=== PATIENT | male | born 1965 | race African-American/Black ===

== ENCOUNTER 2021-11-26 14:45 | Inpatient (IN) | payer OTHER, SELFPAY ==
[~2021-11-26 14:45] MED LIST: Iopamidol 300 61% 100 ML VIAL FS ONE
[2021-11-26] MEDS ORDERED: Morphine 4 MG/ML VIAL ONE (15:29)
[2021-11-26] MEDS ORDERED: Ondansetron PF 4 MG/2 ML Vial ONE (15:29)
[2021-11-26 15:33] LABS: #Eosinphils 0.2 10x3/uL (0.0-0.5); #Monocytes 0.7 10x3/uL (0.0-1.1); #Neutrophils 13.7 10x3/uL (1.5-8.4); %Basophils 0.3 % (0.0-2.0); %Lymphocytes 5.7 % (18.0-47.0); %Monocytes 4.7 % (0.0-10.0); %Neutrophils 87.9 % (40.0-75.0); Hemoglobin 14.5 g/dL (13.5-17.5); Mean Corpuscular HGB CONC 36.3 g/dL (32.0-36.0); Mean Corpuscular Hemoglobin 34.4 pg (27.0-33.0); Mean Corpuscular Volume 94.8 fl (81.2-95.1); Mean Platelet Volume 9.8 fl (7.4-10.4); Platelet Count 179 10x3/uL (150-450); RBC Distribution Width 12.6 % (11.5-14.5); Red Blood Cell (RBC) Count 4.22 10x6/uL (4.32-5.72); White Blood Cell (WBC) Count 15.6 10x3/uL (3.5-10.5)
[2021-11-26 15:42] LABS: ALT (SGPT) 17 U/L (8-55); AST (SGOT) 26 U/L (5-34); Albumin 4.3 g/dL (3.5-5.0); Alkaline Phosphatase 87 U/L (40-110); Anion Gap 18 mmol/L (10-20); BUN (Urea Nitrogen) 15 mg/dL (8.4-25.7); Bilirubin, Total 0.9 mg/dL (0.2-1.2); Calc. Creatinine Clearance 0 mL/min (70-130); Calcium 9.8 mg/dL (7.8-10.44); Carbon Dioxide 21 mmol/L (22-29); Chloride 105 mmol/L (98-107); Globulin 4.1 g/dL (2.4-3.5); Glucose 194 mg/dL (70-105); Potassium 4.5 mmol/L (3.5-5.1); Protein, Total 8.4 g/dL (6.0-8.3); Sodium 139 mmol/L (136-145)
[2021-11-26 15:53] LABS: Lipase 1723 U/L (8-78)
[2021-11-26] MEDS ORDERED: HYDROmorphone 0.5 MG/0.5 ML SYRINGE ONE (16:50)
[2021-11-26] MEDS ORDERED: Ondansetron ODT 4 MG TAB PO PRN (18:02)
[2021-11-26] MEDS ORDERED: Acetaminophen 325 MG TAB PO PRN (18:02)
[2021-11-26] MEDS ORDERED: Ondansetron PF 4 MG/2 ML Vial IVP PRN (18:02)
[2021-11-26] MEDS ORDERED: HumaLOG 300 UNITS/3 ML VIAL SC PRN (18:04)
[2021-11-26] MEDS ORDERED: Dextrose 50% Abboject 50 ML SYRINGE SLOW IVP PRN (18:04)
[2021-11-26] MEDS ORDERED: Dextrose 5% in Water 1,000 ML IV PRN (18:04)
[2021-11-26] MEDS ORDERED: Nicotine 7 MG PATCH TD PRN (18:06)
[2021-11-26] MEDS ORDERED: Electrolyte Replacement Protocol 1 EACH FS PRN (18:15)
[2021-11-26 18:47] LABS: Lactic Acid 2.3 mmol/L (0.5-2.2)
[2021-11-26] MEDS: Sodium Chloride 0.9% 1,000 ML IV SCH (20:04)
[2021-11-26] MEDS: Morphine 4 MG/ML VIAL SLOW IVP PRN (20:08)
[2021-11-26] MEDS: hydrALAZINE 20 MG/ML VIAL SLOW IVP PRN (21:15)
[2021-11-26 23:13] LABS: SARS-CoV-2 NAA Rapid Test Not Detected (NotDetected)
[2021-11-27] MEDS: Morphine 4 MG/ML VIAL SLOW IVP PRN ×4 (00:12→22:45)
[2021-11-27] MEDS: Sodium Chloride 0.9% 1,000 ML IV SCH ×4 (02:54→20:07)
[2021-11-27 03:22] LABS: Amphetamine Not Detected (NotDetected); Barbiturates Screen Not Detected (NotDetected); Benzodiazepine Screen Not Detected (NotDetected); Cocaine Metabolite Screen Not Detected (NotDetected); Methadone Not Detected (NotDetected); Methamphetamine Not Detected (NotDetected); Opiate Screen Detected (NotDetected); Oxycodone Screen Not Detected (NotDetected); Phencyclidine (PCP) Not Detected (NotDetected); THC/Cannabinoid Screen Not Detected (NotDetected); Tricyclic Screen Not Detected (NotDetected)
[2021-11-27 04:36] LABS: #Monocytes 0.6 10x3/uL (0.0-1.1); #Neutrophils 9.2 10x3/uL (1.5-8.4); %Basophils 0.3 % (0.0-2.0); %Eosinophils 0.2 % (0.0-6.0); %Lymphocytes 9.9 % (18.0-47.0); %Monocytes 5.4 % (0.0-10.0); %Neutrophils 83.8 % (40.0-75.0); Hemoglobin 12.4 g/dL (13.5-17.5); Mean Corpuscular HGB CONC 35.6 g/dL (32.0-36.0); Mean Corpuscular Hemoglobin 34.5 pg (27.0-33.0); Mean Corpuscular Volume 96.9 fl (81.2-95.1); Mean Platelet Volume 10.6 fl (7.4-10.4); Platelet Count 143 10x3/uL (150-450); RBC Distribution Width 12.8 % (11.5-14.5); Red Blood Cell (RBC) Count 3.59 10x6/uL (4.32-5.72); White Blood Cell (WBC) Count 10.9 10x3/uL (3.5-10.5)
[2021-11-27 05:02] LABS: Anion Gap 15 mmol/L (10-20); BUN (Urea Nitrogen) 20 mg/dL (8.4-25.7); Calc. Creatinine Clearance 57 mL/min (70-130); Calcium 8.6 mg/dL (7.8-10.44); Carbon Dioxide 21 mmol/L (22-29); Cardiac Risk 3.3 (Less than 4.5); Chloride 106 mmol/L (98-107); Cholesterol 147 mg/dl (< 200 Desired); Glucose 154 mg/dL (70-105); HDL Cholesterol 44 mg/dL (>60 Neg Risk); LDL Cholesterol, Calculated 76 mg/dL; Magnesium 1.4 mg/dL (1.6-2.6); Phosphorus 3.5 mg/dL (2.3-4.7); Potassium 4.5 mmol/L (3.5-5.1); Sodium 137 mmol/L (136-145); Triglycerides 134 mg/dL (Less than 150)
[2021-11-27 05:14] LABS: Lipase 1223 U/L (8-78)
[2021-11-27] MEDS: Magnesium 2 GM/50 ML(in water) 2 GM in Premix Bag 1 BAG IVPB SCH ×2 (05:18→08:00)
[2021-11-27] MEDS ORDERED: Amlodipine 5 MG TAB PO SCH (11:45)
[2021-11-27 12:32] LABS: Hemoglobin A1c 8.1 % (4.0-6.0)
[2021-11-27] MEDS: Amlodipine 5 MG TAB PO SCH (12:34)
[2021-11-27 12:55] LABS: Bilirubin Neg (Negative); Blood, Urine 25 (Negative); Clarity Clear (Clear); Glucose, Urine (Dipstick) 50 mg/dL (Negative); Ketone, Urine Negative (Negative); Leukocyte 25 (Negative); Nitrite Negative (Negative); Protein, Urine (Dipstick) 500 mg/dl (Neg-Trace); Specific Gravity, Urine 1.025 (1.002-1.036); Urobilinogen Normal mg/dL (Less than 2)
[2021-11-27 13:21] LABS: Bacteria/HPF Rare-Few HPF (None Seen); RBC/HPF 0-3 HPF (0-3); Squamous Epithelial 0-3 HPF (0-3); Urine Culture Reflex No No; WBC/HPF 0-3 HPF (0-3)
[2021-11-27 15:30] LABS: ALT (SGPT) 10 U/L (8-55); AST (SGOT) 13 U/L (5-34); Albumin 3.3 g/dL (3.5-5.0); Alkaline Phosphatase 60 U/L (40-110); Bilirubin, Direct 0.5 mg/dL (0.1-0.3); Protein, Total 6.7 g/dL (6.0-8.3)
[2021-11-27 19:26] VITALS: BMI 30.5
[2021-11-28] MEDS: Sodium Chloride 0.9% 1,000 ML IV SCH ×3 (04:20→19:14)
[2021-11-28 04:34] LABS: Prothrombin Time 10.9 sec (9.5-12.1)
[2021-11-28 04:53] LABS: #Eosinphils 0.1 10x3/uL (0.0-0.5); #Monocytes 0.7 10x3/uL (0.0-1.1); #Neutrophils 9.8 10x3/uL (1.5-8.4); %Basophils 0.2 % (0.0-2.0); %Eosinophils 0.4 % (0.0-6.0); %Lymphocytes 10.5 % (18.0-47.0); %Monocytes 6.1 % (0.0-10.0); %Neutrophils 82.1 % (40.0-75.0); Hemoglobin 11.6 g/dL (13.5-17.5); Mean Corpuscular HGB CONC 34.9 g/dL (32.0-36.0); Mean Corpuscular Hemoglobin 34.2 pg (27.0-33.0); Mean Corpuscular Volume 97.9 fl (81.2-95.1); Mean Platelet Volume 10.5 fl (7.4-10.4); RBC Distribution Width 12.8 % (11.5-14.5); Red Blood Cell (RBC) Count 3.39 10x6/uL (4.32-5.72); White Blood Cell (WBC) Count 11.9 10x3/uL (3.5-10.5)
[2021-11-28 04:54] LABS: Platelet Count 130 10x3/uL (150-450)
[2021-11-28 04:57] LABS: ALT (SGPT) 10 U/L (8-55); AST (SGOT) 14 U/L (5-34); Albumin 3.1 g/dL (3.5-5.0); Alkaline Phosphatase 74 U/L (40-110); Anion Gap 14 mmol/L (10-20); BUN (Urea Nitrogen) 16 mg/dL (8.4-25.7); Bilirubin, Total 1.2 mg/dL (0.2-1.2); Calc. Creatinine Clearance 76 mL/min (70-130); Calcium 8.2 mg/dL (7.8-10.44); Carbon Dioxide 21 mmol/L (22-29); Chloride 104 mmol/L (98-107); Globulin 3.4 g/dL (2.4-3.5); Glucose 125 mg/dL (70-105); Magnesium 2.1 mg/dL (1.6-2.6); Potassium 4.6 mmol/L (3.5-5.1); Protein, Total 6.5 g/dL (6.0-8.3); Sodium 134 mmol/L (136-145)
[2021-11-28] MEDS: Amlodipine 5 MG TAB PO SCH (08:59)
[2021-11-28] MEDS: Morphine 4 MG/ML VIAL SLOW IVP PRN ×2 (09:00→15:06)
[2021-11-28] MEDS: HumaLOG 300 UNITS/3 ML VIAL SC PRN (11:12)
[2021-11-29] MEDS: Sodium Chloride 0.9% 1,000 ML IV SCH ×4 (00:50→14:53)
[2021-11-29] MEDS: hydrALAZINE 20 MG/ML VIAL SLOW IVP PRN (00:50)
[2021-11-29 04:22] LABS: #Eosinphils 0.1 10x3/uL (0.0-0.5); #Monocytes 0.7 10x3/uL (0.0-1.1); #Neutrophils 8.9 10x3/uL (1.5-8.4); %Basophils 0.2 % (0.0-2.0); %Eosinophils 0.6 % (0.0-6.0); %Lymphocytes 9.7 % (18.0-47.0); %Monocytes 6.5 % (0.0-10.0); %Neutrophils 82.5 % (40.0-75.0); Hemoglobin 11.4 g/dL (13.5-17.5); Mean Corpuscular HGB CONC 35.4 g/dL (32.0-36.0); Mean Corpuscular Hemoglobin 34.3 pg (27.0-33.0); Mean Platelet Volume 10.4 fl (7.4-10.4); Platelet Count 141 10x3/uL (150-450); RBC Distribution Width 12.5 % (11.5-14.5); Red Blood Cell (RBC) Count 3.32 10x6/uL (4.32-5.72); White Blood Cell (WBC) Count 10.8 10x3/uL (3.5-10.5)
[2021-11-29 04:51] LABS: ALT (SGPT) 8 U/L (8-55); AST (SGOT) 16 U/L (5-34); Alkaline Phosphatase 108 U/L (40-110); Anion Gap 13 mmol/L (10-20); BUN (Urea Nitrogen) 13 mg/dL (8.4-25.7); Calc. Creatinine Clearance 92 mL/min (70-130); Calcium 8.4 mg/dL (7.8-10.44); Carbon Dioxide 20 mmol/L (22-29); Chloride 105 mmol/L (98-107); Globulin 3.4 g/dL (2.4-3.5); Glucose 119 mg/dL (70-105); Magnesium 1.8 mg/dL (1.6-2.6); Potassium 4.2 mmol/L (3.5-5.1); Protein, Total 6.4 g/dL (6.0-8.3); Sodium 134 mmol/L (136-145)
[2021-11-29] MEDS ORDERED: Amlodipine 5 MG TAB PO SCH (07:30)
[2021-11-29] MEDS: Morphine 4 MG/ML VIAL SLOW IVP PRN (07:59)
[2021-11-29] MEDS: Amlodipine 5 MG TAB PO SCH (08:00)
[2021-11-29 08:12] LABS: Eosinophils 1 % (0-10)
[2021-11-29 08:13] LABS: Lymphocytes 8 % (21-51); Monocytes 6 % (0-10); Neutrophil 85 % (42-75); Platelet Morphology Comment Appears Adequate
[2021-11-29 08:14] LABS: MDiff Complete? YES; RBC Morphology Normal
[2021-11-29] MEDS ORDERED: Magnesium 2 GM/50 ML(in water) 2 GM in Premix Bag 1 BAG IVPB SCH (13:45)
[2021-11-30 04:33] LABS: #Eosinphils 0.1 10x3/uL (0.0-0.5); #Monocytes 0.8 10x3/uL (0.0-1.1); #Neutrophils 7.8 10x3/uL (1.5-8.4); %Basophils 0.3 % (0.0-2.0); %Eosinophils 0.9 % (0.0-6.0); %Lymphocytes 11.8 % (18.0-47.0); %Monocytes 8.3 % (0.0-10.0); %Neutrophils 78.5 % (40.0-75.0); Hemoglobin 10.7 g/dL (13.5-17.5); Mean Corpuscular HGB CONC 35.7 g/dL (32.0-36.0); Mean Corpuscular Hemoglobin 34.2 pg (27.0-33.0); Mean Corpuscular Volume 95.8 fl (81.2-95.1); Platelet Count 150 10x3/uL (150-450); RBC Distribution Width 12.5 % (11.5-14.5); Red Blood Cell (RBC) Count 3.13 10x6/uL (4.32-5.72); White Blood Cell (WBC) Count 9.9 10x3/uL (3.5-10.5)
[2021-11-30 04:47] LABS: ALT (SGPT) 10 U/L (8-55); AST (SGOT) 20 U/L (5-34); Alkaline Phosphatase 136 U/L (40-110); Anion Gap 14 mmol/L (10-20); BUN (Urea Nitrogen) 11 mg/dL (8.4-25.7); Bilirubin, Total 0.8 mg/dL (0.2-1.2); Calc. Creatinine Clearance 91 mL/min (70-130); Calcium 8.7 mg/dL (7.8-10.44); Carbon Dioxide 20 mmol/L (22-29); Chloride 103 mmol/L (98-107); Globulin 3.4 g/dL (2.4-3.5); Glucose 131 mg/dL (70-105); Magnesium 2.1 mg/dL (1.6-2.6); Potassium 3.8 mmol/L (3.5-5.1); Protein, Total 6.4 g/dL (6.0-8.3); Sodium 133 mmol/L (136-145)
[2021-11-30] MEDS: Amlodipine 5 MG TAB PO SCH (08:46)
[2021-11-30] MEDS: Sodium Chloride 0.9% 1,000 ML IV SCH (08:47)
[2021-11-30] MEDS: HumaLOG 300 UNITS/3 ML VIAL SC PRN (11:43)
[2021-11-30 11:50] VITALS: BP 172/93; TEMP 98.4
== END 2021-11-30 12:07 | disposition home or self-care (01) | DRG 439 ==
LOC: CSHERS 14:45 → INTOOBSV 18:17 → CSHTELE 18:17 → OBSVTOIN 11-28 09:15
PROVIDERS: ADMIT Family Medicine; ATTEND Emergency Medicine
DX: K85.20 Alcohol induced acute pancreatitis without necrosis or infection (principal); E87.2 Acidosis; N17.9 Acute kidney failure, unspecified; I47.2 Ventricular tachycardia; I10 Essential (primary) hypertension; F17.290 Nicotine dependence, other tobacco product, uncomplicated; K40.90 Unilateral inguinal hernia, without obstruction or gangrene, not specified as recurrent; F10.10 Alcohol abuse, uncomplicated; E11.65 Type 2 diabetes mellitus with hyperglycemia; I51.7 Cardiomegaly; Z20.822 Contact with and (suspected) exposure to COVID-19
CPT/HCPCS: 36415; 36416; 71045; 74177; 76705; 80048; 80053; 80061; 80076; 80306; 81001; 82570; 83036; 83605; 83690; 83735; 83880; 83930; 83935; 84100; 84300; 84443; 84484; 84540; 85025; 85060; 85610; 85730; 87086; 93005; 93306; 94760; 96374; 96375; J0360; J1170; J1815; J2270; J2405; J3475; J7050; Q9967; U0002